=== PATIENT | female | born 1970 ===

== ENCOUNTER 2021-05-15 06:54 | Emergency (ER) | payer OTHER ==
[~2021-05-15] VITALS: Ht 170.2 cm; Wt 99.0 kg
[2021-05-15 07:01] VITALS: BP 141/95
--- NOTE | 2021-05-15 09:48 | NUR ---
[employer] NOTE: DC ORDERS RECEIVED. PT A&O, RESPS EVEN AND UNLABORED, AMBULATORY WITH STEADY GAIT. PT GIVEN DC RX FOR ROBAXAN, EDUCATED REGARDING DC RX AND FOLLOW UP INSTRUCTIONS. ALL QUESTIONS ANSWERED, NADN AT DC.
== END 2021-05-15 09:50 | disposition home or self-care (01) ==
LOC: ED 09:23
DX: M54.5 Low back pain (principal)
CPT/HCPCS: 99283